=== PATIENT | female | born 1970 | race Caucasian/White ===

== ENCOUNTER 2020-03-04 16:02 | Emergency (ER) | payer OTHER ==
[2020-03-04 19:04] LABS: HEMOGLOBIN 14.1 gm/dl (12.3-15.3); RED BLOOD COUNT 4.72 M/UL (4.00-5.10); WHITE BLOOD COUNT 9.7 K/UL (4.5-11.0)
[2020-03-04 19:25] LABS: BUN/CREATININE RATIO 29 (0-10)
[2020-03-04] MEDS ORDERED: IBU800 MG PO (21:49)
[2020-03-04] MEDS ORDERED: MACROBID 100 M100 MG PO (21:50)
== END 2020-03-04 21:45 | disposition home or self-care (01) ==
LOC: ER1 16:02
PROVIDERS: Family Medicine
DX: S01.01XA Laceration without foreign body of scalp, initial encounter (principal); N39.0 Urinary tract infection, site not specified; M54.5 Low back pain; S80.12XA Contusion of left lower leg, initial encounter; S80.11XA Contusion of right lower leg, initial encounter; F17.210 Nicotine dependence, cigarettes, uncomplicated; Z23 Encounter for immunization; Y04.0XXA Assault by unarmed brawl or fight, initial encounter; Y92.009 Unspecified place in unspecified non-institutional (private) residence as the place of occurrence of the external cause
CPT/HCPCS: 12001; 70450; 71046; 72072; 72100; 80053; 81001; 85025; 87077; 87086; 87186; 90471; 99284; Q9967

== ENCOUNTER 2021-01-13 12:13 | Emergency (ER) | payer OTHER ==
[~2021-01-13 12:13] MED LIST: IBU800 MG PO; MACROBID 100 M100 MG PO
[2021-01-13] MEDS ORDERED: ZYRTEC10 MG PO (13:11)
[2021-01-13] MEDS ORDERED: FLONASE 0.05% N16 GM (13:11)
[2021-01-13] MEDS ORDERED: AUGMENTIN 875-1 EACH PO (13:11)
[2021-01-13] MEDS ORDERED: DELSYM30 MG/5 ML PO (13:11)
[2021-01-13] MEDS ORDERED: IBUPROFEN600 MG PO (13:11)
== END 2021-01-13 13:08 | disposition home or self-care (01) ==
LOC: ER1 12:13
DX: K02.9 Dental caries, unspecified (principal); J06.9 Acute upper respiratory infection, unspecified; R07.0 Pain in throat
CPT/HCPCS: 87081; 87880; 99283